=== PATIENT | male | born 1960 | race African-American/Black ===

== ENCOUNTER 2016-09-24 22:55 | Emergency (ER) | payer OTHER ==
[~2016-09-24] VITALS: Ht 172.7 cm; Wt 67.0 kg
[~2016-09-24 22:55] MED LIST: AMOX TR-K CLV1 EAC4 PO; ATIVAN1 MG PO; CHLORHEXIDINE473 ML PO; FLEXERIL10 MG PO; IBUPROFEN600 MG PO; LIDEX 0.05% OIN15 GM TP; MOTRIN600 MG PO; MOTRIN800 MG PO; NAPROSYN500 MG PO; NAPROXEN500 MG PO; NOHOMEMEDS; NORCO 5/3251 TABLET PO; PEN-VEE K,VEET500 MG PO; TRAMADOL HCL50 MG PO; ULTRAM50 MG PO; VALIUM5 MG PO
[2016-09-24 23:33] LABS: ADD MIUA? YES; BILIRUBIN NEGATIVE; BLOOD MODERATE; COLOR YELLOW ((YELLOW)); GLUCOSE (STRIP) NEGATIVE; KETONES 5; LEUKOCYTES NEGATIVE; NITRITE NEGATIVE; PROTEIN (STRIP) 100; SPECIFIC GRAVITY 1.031 (1.000-1.030); UROBILINOGEN 0.2 MG/DL (0.2-1.0)
[2016-09-24 23:38] LABS: BACTERIA 1+ /HPF; EPITHELIAL CELLS RARE /HPF; MUCUS 3+ /LPF; UCUL ADDED? NO; WHITE BLOOD CELLS 0-5 /HPF (0-5)
[2016-09-24 23:45] LABS: MCH 31.1 PG (29.0-34.0); MCV 88.8 FL (86-99); MEAN PLAT.VOLUME 8.5 uM^3 (9.0-12.4); PLATELET COUNT 256 K/uL (156-360); RBC DIS.WIDTH-CV 11.9 % (11.8-14.6); RBC DIS.WIDTH-SD 38.2 % (39-53); RED BLOOD COUNT 5.18 M/uL (4.00-5.50); WHITE BLOOD COUNT 4.9 K/uL (4.1-10.2)
[2016-09-24 23:56] LABS: CHLORIDE 107 mEq/L (99-109); POTASSIUM 3.4 mEq/L (3.7-5.4); SODIUM 140 mEq/L (136-147)
[2016-09-24 23:58] LABS: GLUCOSE 96 mg/dL (70-99)
[2016-09-24 23:59] LABS: ANION GAP 13 MEQ/L (2-14)
[2016-09-25] LABS: TOTAL BILIRUBIN 0.7 mg/dL (0.0-1.0)
[2016-09-25 00:01] LABS: ALKALINE PHOSPHATASE 75 IU/L (3-129)
[2016-09-25 00:02] LABS: GFR ESTIMATE (CALCULATED) > 59 mL/min/
[2016-09-25 00:03] LABS: UREA NITROGEN (BUN) 16 mg/dL (9-23)
[2016-09-25] MEDS ORDERED: CIPRO500 MG PO (01:51)
[2016-09-25] MEDS ORDERED: TRAMADOL HCL50 MG PO (01:51)
[2016-09-25] MEDS ORDERED: ZOFRAN4 MG PO (01:51)
[2016-09-25 01:55] VITALS: BP 143/86
== END 2016-09-25 01:56 | disposition home or self-care (01) ==
LOC: EME 22:55
DX: A08.4 Viral intestinal infection, unspecified (principal); F17.200 Nicotine dependence, unspecified, uncomplicated; J45.909 Unspecified asthma, uncomplicated; M19.90 Unspecified osteoarthritis, unspecified site
CPT/HCPCS: 74176; 80053; 81003; 85027; 87086; 99281; 99284

== ENCOUNTER 2017-10-14 23:43 | Emergency (ER) | payer OTHER ==
[~2017-10-14] VITALS: Ht 175.3 cm; Wt 74.3 kg
[~2017-10-14 23:43] MED LIST changes: +CIPRO500 MG PO; +ZOFRAN4 MG PO
[2017-10-15] MEDS ORDERED: NORCO 10/3251 TABLET PO (01:01)
[2017-10-15] MEDS ORDERED: MOTRIN800 MG PO (01:01)
[2017-10-15] MEDS ORDERED: VALIUM5 MG PO (01:01)
[2017-10-15] MEDS ORDERED: LIDODERM 5% P1 PATCH TD (01:01)
[2017-10-15 01:41] VITALS: BP 156/90
== END 2017-10-15 01:42 | disposition home or self-care (01) ==
LOC: EME 23:43
DX: S39.012A Strain of muscle, fascia and tendon of lower back, initial encounter (principal); M54.41 Lumbago with sciatica, right side; R03.0 Elevated blood-pressure reading, without diagnosis of hypertension; Z87.891 Personal history of nicotine dependence; X58.XXXA Exposure to other specified factors, initial encounter
CPT/HCPCS: 99281; 99284; J1885; J3010

== ENCOUNTER 2017-11-06 22:27 | Emergency (ER) | payer OTHER ==
[~2017-11-06] VITALS: Ht 175.3 cm; Wt 72.7 kg
[~2017-11-06 22:27] MED LIST changes: +LIDODERM 5% P1 PATCH TD; +NORCO 10/3251 TABLET PO
[2017-11-07] MEDS ORDERED: NORCO 5/3251 TABLET PO (02:46)
[2017-11-07] MEDS ORDERED: LIDODERM 5% P1 PATCH TD (02:46)
[2017-11-07] MEDS ORDERED: VALIUM5 MG PO (02:46)
[2017-11-07 03:53] VITALS: BP 138/94
== END 2017-11-07 03:54 | disposition home or self-care (01) ==
LOC: EME 22:27
DX: M54.5 Low back pain (principal); G89.29 Other chronic pain; M51.36 Other intervertebral disc degeneration, lumbar region; J45.909 Unspecified asthma, uncomplicated; F17.200 Nicotine dependence, unspecified, uncomplicated
CPT/HCPCS: 72131; 99281; 99284; J1885; J2060